=== PATIENT | male | born 1955 | race Caucasian/White ===

== ENCOUNTER → 2024-04-26 | Outpatient (CLI) | payer OTHER ==
[2024-04-26 12:27] LABS: ALBUMIN 3.9 g/dL (3.5-5.0); BILIRUBIN,TOTAL 0.5 mg/dL (0.2-1.0); CREATININE 1.1 mg/dL (0.5-1.3); POTASSIUM 4.3 mmol/L (3.5-5.1); TOTAL PROTEIN, SERUM 7.7 g/dL (6.0-8.3)
== END | disposition home or self-care (01) ==
LOC: LAB 08:39
PROVIDERS: ATTEND Internal Medicine Cardiovascular Disease
DX: E78.00 Pure hypercholesterolemia, unspecified (principal)
CPT/HCPCS: 36415; 80053; 80061

== ENCOUNTER → 2024-05-19 | Outpatient (CLI) | payer OTHER | END | disposition home or self-care (01) | LOC: RAH 11:20 | PROVIDERS: ATTEND Internal Medicine | DX: R05.3 Chronic cough (principal) | CPT/HCPCS: 71046 ==

== ENCOUNTER → 2024-07-11 | Outpatient (CLI) | payer OTHER | END | disposition home or self-care (01) | LOC: RAH 13:11 | PROVIDERS: ATTEND Otolaryngology Plastic Surgery within the Head & Neck | DX: K21.9 Gastro-esophageal reflux disease without esophagitis (principal); R13.10 Dysphagia, unspecified | CPT/HCPCS: 74230; 92611 ==

== ENCOUNTER → 2024-12-15 | Outpatient (CLI) | payer OTHER ==
--- NOTE | 2024-12-15 13:30 | NUR ---
MBSS COMPLETED (OUTPATIENT). SILENT JOSHUA ASPIRATION with pudding thick liquids. Recommend NPO and continue with PEG tube feedings. RESEARCH AND DEVELOPMENT SCIENTIST reviewed results and recommendations with patient and family present at time of visit. RESEARCH AND DEVELOPMENT SCIENTIST educated patient on risks and consequences of aspiration. Speech therapy not warranted at this time. Dysphagia likely patient's baseline. All questions answered. Addendum: 12/15/[address] RAJIV CASTANO Amended: Links added.
--- NOTE | 2024-12-15 16:04 | HMCIMG ---
MODIFIED BARIUM SWALLOW W CINE INDICATION: Dysphagia, oropharyngeal phase, Feeding difficulties, unspecified FINDINGS: Fluoroscopic assistance was provided to the speech pathologist while performing examination. For findings and dietary recommendations, refer to speech pathologist's report. FLUORO TIME: 1.4 minutes IMPRESSION: Modified barium swallow as described.
== END | disposition home or self-care (01) ==
LOC: RAH 12:34
PROVIDERS: ATTEND Internal Medicine Gastroenterology
DX: R13.12 Dysphagia, oropharyngeal phase (principal); R63.30 Feeding difficulties, unspecified
CPT/HCPCS: 74230; 92611

== ENCOUNTER → 2025-03-08 | Outpatient (CLI) | payer OTHER ==
[2025-03-08] MEDS: HEParin 5,000 UNIT VIAL ONE (13:58)
--- NOTE | 2025-03-09 17:17 | HMCSR ---
APPROVED REPORT In-Patient Location: outpatient INDICATION Congestive Heart Failure PROCEDURE The patient was injected with 12.5 mg of cold stannous pyrophosphate. After 20-30 minutes the patien t was injected with 25 mCi of Technetium-99m Pertechnate. The patient was then imaged with ECG gating in the planar [place], anterior and lateral view(s). Findings Image quality is . Impressions Calculated left ventricular ejection fraction is 42%%. Mildly depressed LV ejection fraction as above.
== END | disposition home or self-care (01) ==
LOC: SHCH 13:45
PROVIDERS: ATTEND Internal Medicine Cardiovascular Disease
DX: I11.0 Hypertensive heart disease with heart failure (principal); I50.22 Chronic systolic (congestive) heart failure
CPT/HCPCS: 78481; J1644; A9512